=== PATIENT | female | born 1945 | race Caucasian/White ===

== ENCOUNTER 2023-09-30 10:02 | Outpatient (REF) | payer MEDICARE, SELFPAY ==
--- NOTE | ~2023-09-30 | FL_ITS ---
EXAMINATION: Modified Barium Swallow CLINICAL INFORMATION: Dysphagia COMPARISON: None TECHNIQUE: Modified barium swallow was performed under lateral fluoroscopy with patient in standing position. Barium mixed with solids and liquids of different consistencies was administered by the speech pathologist. Examination was recorded in the fluoroscopy suite. FINDINGS: There is trace laryngeal penetration with thin barium. No aspiration was observed during this examination. FLUOROSCOPY TIME: 2 minutes 12 seconds Number of Spot Images: N/A DOSE AREA PRODUCT: 832.6 uGy-m2 (microgray-meter squared) FL/FL barium swallow modified IMPRESSION: There is trace laryngeal penetration with thin barium. No subglottic aspiration was observed during this examination. Refer to the speech therapy report for further clarification This procedure was performed by Roderick Bruno PA-C, and supervised by Dr. Pollard
--- NOTE | 2023-09-30 12:38 | MHC.SL.IMP ---
Date of Plan of Treatment: 09/30/23 Onset of Symptoms/Illness: 09/10/23 Date Treatment Started: 09/30/23 Admitting Diagnosis: Dysphagia Primary Speech & Language Diagnosis: R13.19 Other Dysphagia Reason for Today's Visit: [id number] Modified Barium Swallow Study Comments: Pt had a choking episode at her STR on a piece of meatloaf. Pre-evaluation Dietary Consistencies: Grnd/Mech Altered (NDD2) Pre-evaluation Liquid Consistency: Thin Pre-evaluation Medication Administration: Crushed with Puree Medical History: Other: See below R-hip Fx Falls DM2 COPD Asthma Obesity Heart Block, Unspecified Nicotine dependence HTN Monoclonal gammopathy HLD GERD Muscle weakness Oral Motor Exam Facial Symmetry: Symmetrical Mouth Occlusion: Normal Oral-Facial Teeth Characteristics: Partially Missing Oral Expression Ability: No Impairment Is patient able to manage secretions?: Yes Is patient able to produce volitional cough?: Yes Food and Liquid Trials: Oral Impairment: Lip Closure: 0=No labial escape Oral Impairment: Tongue Control During Bolus Hold: 0=Cohesive bolus between tongue to palatal seal Oral Impairment: Bolus Preparation/Mastication: 1=Slow prolonged chewing/mashing with complete re-collection Oral Impairment: Bolus Transport/Lingual Motion: 0=Brisk tongue motion Oral Impairment: Oral Residue: 3=Majority of bolus remaining Oral Impairment:Initiation of Pharyngeal Swallow: Pharyngeal Impairment: Soft Palate Elevation: 1=Trace column of contrast or air between SP and PW Pharyngeal Impairment: Laryngeal Elevation: 1=Partial thyroid cartilage/arytenoids to epiglottic petiole movement Pharyngeal Impairment: Anterior Hyoid Excursion: 1=Partial anterior movement Pharyngeal Impairment: Epiglottic Movement: 0=Complete inversion Pharyngeal Impairment: Laryngeal Vestibular Closure:: 0=Complete: no air/contrast in laryngeal vestibule Pharyngeal Impairment: Pharyngeal Stripping Wave: 0=Present: complete Pharyngeal Impairment: Pharyngeal Contraction: Did not test Pharyngeal Impairment: Pharyngoesophageal Segment Opening: Did not test Pharyngeal Impairment: Tongue Base (TB) Retraction: 1=Trace column of contrast/air between TB and posterior PW Pharyngeal Impairment: Pharyngeal Residue: 1=Trace residue within or on pharyngeal structures Pharyngeal Impairment: Esophageal Clearance Upright Position: 0=Complete clearance: esophageal coating Impressions and Recommendations Clinical Observations: Current (pre-evaluation) Intake/Diet: Pre-Study Functional Oral Intake Scale (FOIS): 5- Total oral intake of multiple consistencies requiring special preparation [id number] ID: [id number] [facility] Results: Lip closure for intraoral bolus containment resulted in no labial escape. Tongue control during bolus hold maintained a cohesive bolus held between tongue to palate seal. Bolus preparation and mastication resulted in slow, prolonged chewing/mashing but with complete re-collection. Bolus transport/lingual motion was with brisk tongue motion. Oral residue was the majority of the bolus. Initiation of the pharyngeal swallow occurred when the bolus head was in the valleculae. Soft palate elevation resulted in no bolus between the soft palate and the pharyngeal wall. Laryngeal elevation was decreased, with partial superior movement of the thyroid cartilage/partial approximation of the arytenoids to the epiglottic petiole. Anterior hyoid excursion demonstrated partial anterior movement. Epiglottic movement resulted in complete inversion. Laryngeal vestibular closure was incomplete, with a narrow column of air/contrast noted within the laryngeal vestibule at the height of the swallow. Pharyngeal stripping wave was present and complete. Pharyngeal contraction could not be determined due to logistical reasons not related to physiologic impairment. Pharyngoesophageal segment opening could not be assessed due to logistical reasons not related to physiologic impairment. Tongue base retraction allowed a trace column of contrast or air between the retracted tongue base and the posterior pharyngeal wall. Pharyngeal residue was a trace within or on pharyngeal structures. Esophageal clearance in the upright position could not be assessed due to logistical reasons not related to physiologic impairment. Oral Impairment Score: 5 Pharyngeal Impairment Score: 3 (absence of score, component 13component 14) Esophageal Impairment Score: --- (absence of score, component 17) Laryngeal Penetration and Aspiration: Neither penetration nor aspiration was observed in today's study with Cookie, Pudding-thick, Thin. SUMMARY: Sofia demonstrated a healthy swallow pattern on today?s study. Significant findings include delayed oral preparation of a Regular Solid, wherein she effectively striped the solid consistency of barium before processing the bolus completely. She requested a drink and was provided Thin contrast which helped to clear the remainder of the bolus with no penetration or aspiration. Pt was asked to hold her head up and chest out by the Radiologist to visualize her lower pharyngeal space. Her posture and requirement of a sling on her right arm made her shoulder otherwise block the space. For this reason PES Segment Opening could not be assessed with all consistencies. Mild retention of contrast was noted in her pyriform sinuses, however this is deemed age-appropriate. PLAN: Intake Recommendations: Post-Study Functional Oral Intake Scale (FOIS): 6- Total oral intake with no special preparation, but must avoid specific foods or liquid items. Recommend she advance to an unrestricted diet of soft, easy to chew solids prepared with additional moisture to aid her oral phase preparation. Liquids continue to be unrestricted to Thin Liquids. Medications can be Whole, Cut or Crushed in Puree medium. Pt has a history of GERD, she should continue with GI recommendations to ease her Esophageal phase of the swallow. No further ST[facility] RIGGER intervention is indicated at this time. Please re-refer if status changes. Thank you for the opportunity to participate in the care of this patient. Liquid Intake Recommendation: Thin Dietary Recommendations: Regular (Soft) Medication Administration: Whole with Puree Please contact the pharmacy regarding appropriate crushable or liquid drug formulations that are available whenever modified delivery is recommended. Compensatory Strategies Recommended: Sitting Upright (90 deg) Double Swallow Liquids from Cup Small Bites and Sips Alternate Liquids/Solids Rate of Ingestion Change Avoid Specific Foods Supervision during eating and or drinking: Total Supervision (1:1) Recommended Treatments: Compens. Strategy Educat. Recommendation for Speech Therapy: NA:Typical Evaluation PLAN: Intake Recommendations: Post-Study Functional Oral Intake Scale (FOIS): 6- Total oral intake with no special preparation, but must avoid specific foods or liquid items. Recommend she advance to an unrestricted diet of soft, easy to chew solids prepared with additional moisture to aid her oral phase preparation. Liquids continue to be unrestricted to Thin Liquids. Medications can be Whole, Cut or Crushed in Puree medium. Pt has a history of GERD, she should continue with GI recommendations to ease her Esophageal phase of the swallow. No further STONE RIGGER intervention is indicated at this time. Please re-refer if status changes. Thank you for the opportunity to participate in the care of this patient. Timeline to reassess: NA Clinician - Supplemental, Miscellaneous Communication: It is important to note MBSS objective studies are snapshots in time and Patient function might vary with factors such as time of day or concomitant medical conditions. For this reason, the final treatment plan for this patient should rest with their medical care team. Additional recommendations should be considered with the totality of the Patient in mind. Thank for the opportunity to participate in the care of this patient. If you have any questions about the content of this report, please contact the [facility] at [facility]. Mid Wife Clinician/Clinical Fellow: No Supervisory Statement: N/A Speech Language Pathologist: Edin Soler M.A., [facility]
== END 2023-09-30 10:03 | disposition home or self-care (01) ==
LOC: HO.XRAY 10:02
PROVIDERS: PCP Internal Medicine; Visit Provider Internal Medicine
DX: R13.10 Dysphagia, unspecified (principal)
CPT/HCPCS: 74230; 92611

== ENCOUNTER → 2023-09-30 11:00 | Outpatient (BNV) | payer MEDICARE, SELFPAY | PROVIDERS: PCP Internal Medicine; Visit Provider Physician Assistant Surgical | DX: R13.10 Dysphagia, unspecified (principal) | CPT/HCPCS: 74230 ==